=== PATIENT | male | born 2005 | race Caucasian/White ===

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

== ENCOUNTER 2024-06-11 16:33 | Emergency (ER) | payer OTHER, BC, SELFPAY ==
[2024-06-11 16:49] VITALS: BP 143/88; PULSE 91; RESP 16; TEMP 36.6; O2SAT 100
--- NOTE | 2024-06-11 16:49 | ED_ITS ---
HPI - Wound/Laceration General Chief Complaint: Wound/Laceration Stated Complaint: finger laceration Time Seen by Provider: 06/11/24 16:49 Source: patient, RN notes reviewed and old records reviewed Mode of arrival: ambulatory Limitations: no limitations History of Present Illness HPI narrative: 18 year old male present accompanied by family with complaints of injury to his left distal medial index finger adjacent to nail bed prior to arrival when taking a new water heater from box at work. Patient has avulsion type of injury with no acute active bleeding noted. Patient reports that last tetanus in 2014.Patient reports throbbing pain to area, rates pain 5/10. Onset (ago): hour(s) (within past hour prior to arrival) Location: other (left distal index finger medial aspect adjacent to nailbed) Place: work Patient tetanus UTD: No Treatments prior to arrival: bandage Related Data Home Medications Medication Instructions Recorded Confirmed No Home Medications 11/11/23 06/11/24 Allergies Allergy/AdvReac Type Severity Reaction Status Date / Time No Known Drug Allergies Allergy Unknown Verified 06/11/24 16:47 Review of Systems Review of Systems: CONSTITUTIONAL: Denies fever, chills, or sweats. CARDIOVASCULAR: Denies pain, palpitations, or edema. RESPIRATORY: Denies cough or dyspnea. SKIN: Reports laceration to distal medial left index finger adjacent to nail bed avulsion wound MUSCULOSKELETAL: Denies musculoskeletal pain NEUROLOGIC: Denies numbness, or weakness. All systems reviewed & are unremarkable except as noted in HPI and below PMFSH Past Medical History Medical History (Updated 06/13/24 @ 11:48 by Kristen Wilson NP) Nephrolithiasis Social History Social History Smoking status: Never smoker Alcohol intake: never Substance use: never Living arrangements: with family Occupation/Education: student Gender identity (if verbalized by the patient): Male Comments At time of signature, agree with nursing past medical, surgical, social and family history. There is no relevant family history pertinent to the presenting complaint Exam Narrative: GENERAL: Well-appearing, well-nourished, and in no acute distress. HEAD: Normocephalic, atraumatic. NECK: Supple. no lymphadenopathy CHEST: Clear to auscultation. No respiratory distress.SAO2 100% on room air HEART: Regular rate and rhythm. No murmur heard. Normal peripheral pulses. EXTREMITIES: Normal range of motion. No edema. SKIN: Warm, dry, no rash. Reports avulsion type of laceration to the distal medial index finger adjacent to nail bed with no injury to nail. NEURO: No focal deficits. Alert and oriented x3. Course Course Level of Care: Express Care Visit Vital Signs Vital signs: Vital Signs Temperature 36.6 C 06/11/24 16:49 Pulse Rate 91 06/11/24 16:49 Respiratory Rate 16 06/11/24 16:49 Blood Pressure 143/88 H 06/11/24 16:49 Pulse Oximetry 100 06/11/24 16:49 Temperature 36.6 C 06/11/24 16:49 Pulse Rate 91 06/11/24 16:49 Respiratory Rate 16 06/11/24 16:49 Blood Pressure 143/88 H 06/11/24 16:49 Pulse Oximetry 100 06/11/24 16:49 Procedures Laceration index finger: Date: 06/11/24 Time: 16:58 Site: hand (medial index finger) Side (If applicable): left Size (cm): 1 Description: other (avulsion of skin) Depth: simple, single layer Local Anesthetic: none Pre-repair: irrigated extensively (wound cleansing solution and saline) and other (avulsed skin excision with sterile scissors) ====== Skin Level ====== Skin layer closed with: steri strips ====== Subcutaneous Layer ====== ====== Muscle Layer ====== ====== Tendon Layer ====== Dressing: steri strips applied and wound covered with tube gauze dressing with wound care reviewed with patient and family with understanding voiced. MDM - Wound/Laceration MDM Narrative Medical decision making narrative: Wound explored for foreign body and copious irrigation provided with no evidence of FB. Discussed the potential of retained foreign body with the patient and signs/symptoms that should prompt the patient to immediately go to the ED for reevaluation. The wound was explored and no foreign bodies were found. There was no evidence of tendon or nerve lacerations. The wound was closed per procedure note. A sterile dressing was then applied and anticipatory guidance was provided. Tetanus prophylaxis was given while in clinic with no reaction noted. Differential Diagnosis Differential diagnosis: Likely laceration, abrasion, avulsion of skin and other (injury to distal left medial index finger) Medical Records Attestation: I reviewed the patient's medical records. Critical Care Time Critical Care Time Critical Care Time: No Discharge Plan Discharge Clinical Impression: Avulsion of skin of index finger Patient Disposition: Home, Self-Care Condition: Stable Instructions: Antibiotic Form, Skin Avulsion (ED) Additional Instructions: Keep the area clean and dry No continuous water contact like dishes or swimming You may bathe and wash you hair caution with hair products or lotions Tylenol or ibuprofen for any fever pain dressing of choice watch for infection--redness, swelling, drainage left strips fall off on heir own recheck with PCP if further concerns or problems If your symptoms persist, change or worsen significantly before you can contact your personal physician then please, without delay, go to the emergency department for further evaluation. Follow-up with PCP in 7-10 days or sooner if needed Follow up with PCP soon in regards to your blood pressure which is elevated above threshold for referral. Blood pressure above 120/80 may indicate pre- hypertension. 143/88 Prescriptions: No Action No Home Medications Follow-up/Referrals: PHYSICIAN,PRESCHOOL PRINCIPAL [Primary Care Provider] - Time of Disposition: 17:09 Quality Waterflow Coma Scale Eyes: Open Verbal: Oriented and Alert Motor: Follows Commands Leonides Coma Total Score: 15
[2024-06-11] MEDS: TETANUS,DIPHTHERIA,AC PERTUSSIS ADULT (0.5 ML) BOOSTRIX IM (17:24)
== END 2024-06-11 17:36 | disposition home or self-care (01) ==
PROVIDERS: Emergency Provider Registered Nurse
DX: S61.201A Unspecified open wound of left index finger without damage to nail, initial encounter (principal); X58.XXXA Exposure to other specified factors, initial encounter; Y99.0 Civilian activity done for income or pay; Z23 Encounter for immunization
CPT/HCPCS: 90471; 90715; 99212; G0463